=== PATIENT | male | born 1950 | race Caucasian/White ===

== ENCOUNTER 2022-03-10 11:55 | Emergency (ER) | payer MEDICARE, OTHER ==
[2022-03-10 12:36] VITALS: PULSE 70
[2022-03-10 13:46] LABS: TROPONIN I HIGH SENSITIVITY 6.6 pg/mL (<=60.3)
[2022-03-10 14:10] VITALS: BP 180/97
== END 2022-03-10 14:42 | disposition home or self-care (01) ==
LOC: JP.ED 11:55
DX: I10 Essential (primary) hypertension (principal); Z88.5 Allergy status to narcotic agent; Z91.041 Radiographic dye allergy status; Z79.899 Other long term (current) drug therapy; Z87.891 Personal history of nicotine dependence
CPT/HCPCS: 36415; 80048; 84484; 85025; 93005; 99283